=== PATIENT | male | born 1995 | race Caucasian/White ===

== ENCOUNTER 2022-07-18 11:27 | Emergency (ER) | payer MEDICAID ==
[2022-07-18] MEDS ORDERED: diphenhydrAMINE 50 MG/ML SDV IVPUSH ONE ×2 (12:09)
[2022-07-18] MEDS ORDERED: Prochlorperazine 10 MG/2 ML SDV IVPUSH ONE (12:09)
[2022-07-18] MEDS ORDERED: Sodium Chloride 0.9% 10 ML Syringe FLUSH PRN (12:09)
[2022-07-18] MEDS ORDERED: Sodium Chloride 0.9% 1,000 ML IV ONE (12:09)
[2022-07-18 12:28] LABS: ESTIMATED GFR 119 mL/min (>60)
[2022-07-18] MEDS ORDERED: Iopamidol 755 Mg/ML 100 ML Bottle IV ONE (13:43)
[2022-07-18 13:57] LABS: CORONAVIRUS COVID-19 NAA NEGATIVE (NEGATIVE)
== END 2022-07-18 15:20 | disposition home or self-care (01) ==
LOC: FB.ED 11:27
DX: R10.9 Unspecified abdominal pain (principal); M54.50 Low back pain, unspecified; G89.29 Other chronic pain; R10.815 Periumbilic abdominal tenderness; F41.9 Anxiety disorder, unspecified; R19.7 Diarrhea, unspecified; R11.2 Nausea with vomiting, unspecified; Z20.822 Contact with and (suspected) exposure to COVID-19
CPT/HCPCS: 0240U; 36415; 74177; 80053; 80307; 81001; 83605; 83690; 83735; 85025; 86140; 96361; 96374; 96375; 99284; J0780; J1200; J7030; Q9967